=== PATIENT | female | born 1980 | race Caucasian/White ===

== ENCOUNTER 2021-12-30 14:43 | Emergency (ER) | payer OTHER ==
[2021-12-30] MEDS ORDERED: MEDROL DOSEPAK 24 MG PO (16:53)
== END 2021-12-30 16:58 | disposition home or self-care (01) ==
LOC: ER1 14:43
DX: T63.441A Toxic effect of venom of bees, accidental (unintentional), initial encounter (principal)
CPT/HCPCS: 96372; 99282; J2930